=== PATIENT | female | born 1945 | race Caucasian/White ===

== ENCOUNTER 2016-09-20 08:13 | Inpatient (IN) | payer MEDICARE, OTHER ==
[~2016-09-20] VITALS: Ht 167.6 cm; Wt 100.1 kg
[2016-09-20] VITALS (8 sets, daily range): BP systolic 126–137; BP diastolic 74–91; PULSE 52–142; RESP 16–18; O2SAT 96–98
[~2016-09-20 08:13] MED LIST: ACET-171 PO; BENA20TA PO; CEPH500C PO; CHOL10008 PO; CLOB15CR3 TOP; CLOT15CR5 TOPICAL; DESO15CR25 TOP; FLUO15OI TOP; HYDR-4003 PO; METO25TA99 PO; MULT-1086 PO; OLP.1OP5 AFFECT_EYE; OMEG1CAP99 PO; PROP225C6 PO; WARF2.5T82 PO; WARF5TAB7 PO; [UNRECOGNIZED DRUG - CODE] OP
[2016-09-20] MEDS ORDERED: Alum-Mag Hydrox-Simeth 30 mL Suspension PO PRN (08:35)
[2016-09-20] MEDS ORDERED: Polyethylene Glycol (PEG) 17 Gm Powder PO PRN (08:35)
[2016-09-20 09:29] LABS: INR 1.85 ratio
[2016-09-20 09:35] LABS: Magnesium 1.9 mg/dL (1.6-2.6)
--- NOTE | 2016-09-20 10:05 | HP ---
[address] [address] HISTORY AND PHYSICAL PATIENT: SHLOMO PAEZ : 1945 MR#: [id number] ADMIT: 09/20/2016 JOB ID: [id number] REASON FOR ADMISSION: To start new antiarrhythmic therapy for atrial fibrillation with sotalol. CHIEF COMPLAINT: Fatigue and exertional dyspnea. BRIEF HISTORY: The patient is a pleasant 71-year-old woman with a structurally normal heart, but paroxysmal atrial fibrillation even when treated with propafenone. She has had a previous atrial fibrillation ablation procedure, and she has sick sinus syndrome with symptomatic bradycardia and has a dual-chamber cardiac pacemaker in place. Her pacemaker showed the presence of atrial fibrillation about 30% of the time. The pacemaker is functioning normally. She experienced a significant fatigue and exertional dyspnea and this may be from the presence of atrial fibrillation or possibly from propafenone. The recent echocardiogram and stress tests have not been revealing for a cause of her symptoms. This admission was arranged to switch antiarrhythmic medications from propafenone to sotalol with hopes of better efficacy in preventing atrial fibrillation and to rule out propafenone as a cause of symptoms also. Today other than exertional dyspnea. She feels well at rest. She has no complaints of shortness of breath or chest pain at rest. She is mildly aware of an irregular rhythm, although she does not feel tachycardia or symptoms the way she did prior to the ablation and prior to the pacemaker. She denies any pain or abdominal discomfort and has no current problems with diarrhea. PAST MEDICAL HISTORY: This is significant for tachycardia bradycardia syndrome including paroxysmal atrial fibrillation with rapid rates and bradycardia with syncope. She also has hypertension. ALLERGIES: 1. MORPHINE. 2. LATEX. 3. BUPROPION. 4. ADHESIVE TAPE. 5. MEPERIDINE. REVIEW OF SYSTEMS: Currently feeling well in general, no complaints of shortness of breath, anxiety, or pain. She has exertional fatigue. Constitutional is negative for weight gain or weight loss. Musculoskeletal negative for weakness. GI no blood in stool or heartburn. Endocrine no polydipsia. Hematology no easy bleeding, although she is on warfarin. Skin: She has a rash on the dorsum of her left foot and this has been chronic. Cardiac palpitations, but no chest pain. Respiratory: No shortness of breath or wheezing at rest. : No hematuria. Neuro no dizziness or difficulty walking. PHYSICAL EXAMINATION: She is a well-developed, well-nourished, 71-year-old woman who appears younger than her stated age and is in no distress. Carotid pulses are faint, but present and irregular. No carotid bruits. No JVD. No thyromegaly. Chest exam breath sounds are full and clear in all sullivan. There is no wheezing. Cardiac rhythm is irregularly irregular. Rate approximately 100 per minute. No gallops or murmurs heard. Abdomen is soft and nontender, modestly obese. Extremities are with good pulses and no cyanosis and no edema. IMPRESSION: The patient with continued paroxysmal atrial fibrillation despite prior ablation procedure. She is known to have tachybrady syndrome and has a dual-chamber pacemaker in place. She continues to have significant exertional fatigue and dyspnea. This may be from atrial fib or from medication. PLAN: The patient was taken off propafenone about 5 days ago, and she will be started on sotalol 80 mg b.i.d. today. Baseline BMP and magnesium will be obtained as well as her INR. A 12 lead ECG will be recorded prior to sotalol and then 2 hours after each dose of sotalol observing for the QT interval. We expect to find that her atrial fibrillation has been paroxysmal, and she will not require cardioversion during this hospitalization. The pacemaker will be analyzed at some point to see what the burden of atrial fibrillation has been for the last month.
--- NOTE | 2016-09-20 14:14 | PCM.CONPHA ---
Subjective Reason for Pharmacy Consult: Anticoagulation Management Assessment/Plan Assessment/Plan Warfarin Management by Pharmacy Indication: Afib Home Dose: Warfarin 5 mg Mon/Tue/Fri; 2.5 mg AOD INR Goal: 2-3 Duration: Unknown INR: 1.85 Assessment/Plan - Subtherapeutic INR with no dose taken prior to admit. No acute s/s of bleeding. -Will continue with home dose of warfarin 5mg this evening. -Pharmacy to monitor INR/CBC/signs of bleeding while inpatient. Dave Zuleta Dwaine Pharm.D. Silvano Acosta September 20, 2016 14:14
[2016-09-20] MEDS ORDERED: PROP1DRO BOTH_EYES (15:33)
[2016-09-20] MEDS ORDERED: WARF5TAB7 PO ×2 (15:33)
[2016-09-20] MEDS ORDERED: GLUC-104 PO (15:33)
[2016-09-20] MEDS ORDERED: CHOL5000 PO (15:33)
--- NOTE | 2016-09-20 17:41 | NUR ---
Arrived at 0820, Multidisciplinary Communication About 0820 - She arrived to [facility] from home. She was settled into her room and shown around it. Assessment completed, vitals taken, baseline EKG run, IV placed, and her first dose of Sotalol given. 1255 - Noted there was some confusion on the QTc reporting on her EKGs so BARBARA Valero was paged. He called back and said he'd look over it. He called back shortly after and said that because her hear rate was over 100 her QTcs were not reading properly. Per his personal measuring he determined her QTcs were about 360 for both her baseline and first post Sotalol dose EKGs. Care continues.
[2016-09-21] VITALS (8 sets, daily range): BP systolic 118–140; BP diastolic 77–98; PULSE 57–125; RESP 16–20; O2SAT 95–97
--- NOTE | 2016-09-21 01:15 | NUR ---
Report given and care transferred to the receiving RN (Monique Clark) at the bedside.
--- NOTE | 2016-09-21 05:01 | NUR ---
Patient has been resting without complaint overnight. Denies any chest pain or SOB. Patient instructed to inform us of any changes. Continue with sotolol monitoring.
[2016-09-21 05:17] LABS: INR 1.94 ratio
[2016-09-21] MEDS: MeTOProlol XL 25 mg ER24 Tablet PO SCH ×2 (09:22→21:04)
--- NOTE | 2016-09-21 11:45 | NUR ---
Social Work Note - Initial Assessment: D: See Initial Assessment. The Pt is a 71 y/o female that was admitted for atrial fibrillation, Readmission Risk Score is 1. The Pt's PCP is MD Bhavani rOtiz and her primary insurance is Medicare with a [employer] Plan supplement, no LTC or VA benefits reported. EMR reviewed. SW met with the Pt to explain role and discuss discharge planning, SW telephone written on white board. The Pt lives in a one story home in [place] with her , she is independent in her ADLs. Pt reports that she is in the process of completing her Advanced Directive. The Pt continues to drive, does not use any DME, and has no HH/SNF history. The Pt is being followed by Cardiology, see notes. The Pt denies any needs at this time, SW to follow if needs arise. A: Pt who is independent in her ADLs at baseline. P: The Pt is not medically stable for discharge, being followed by Cardiology. Pt likely to discharge home with family providing POV transportation when medically ready. The Pt denies any needs at this time, SW to follow if needs arise. NISHA Hobson Nitroglycerin Nitrator Operator Batch NISHA Harvey Addendum: 09/21/16 at 1153 by HONEY ELIZONDO Amended: Links added.
--- NOTE | 2016-09-21 14:49 | NUR ---
Telemetry, Care Assist, Multidisciplinary Communication 819 - The [employer] called to notify this nurse that her heart rate was increasing into the 130s A-fib. Informed her that this nurse would check on her and be giving her cardiac medications soon. 909 - Spoke with BARBARA Valero about her morning medications, medication requisition, and her low INR and need for a higher dose of warfarin. He said he would speak to pharmacy about dosing the warfarin. [id number] - Laurita Shafer RN temporarily took over her care while this nurse went and received mandatory educational training. Care continues. Addendum: 09/21/16 at 1714 by SEAMUS GALAN RN 1700 - Called Clarence from Pharmacy to clarify her Warfarin dose for today. He said that the dose she got this morning was the only one she needed for today. Care continues.
--- NOTE | 2016-09-21 18:31 | PROG NOTE ---
[address] [address] PROGRESS NOTE PATIENT: SHLOMO PAEZ : 1945 MR#: [id number] ADMIT: 09/20/2016 JOB ID: [id number] DATE: 09/21/2016 CHIEF COMPLAINT: Rapid and irregular pulse beat. SUBJECTIVE: The patient began antiarrhythmic therapy with sotalol yesterday for treatment of atrial fibrillation. She is tolerating the medication well and her only possible side-effect sign or symptom was that she had five bowel movements yesterday, although it was not diarrhea. Today, she reports much relief from this and she has not gone to the toilet as much. Otherwise, she denies any stomach upset, nausea, lightheadedness, or dyspnea. OBJECTIVE: Cardiac telemetry shows continued presence of atrial fibrillation. Her 12-lead ECG today after the third dose of sotalol 80 mg shows atrial fibrillation with an average ventricular rate of 97 BPM and a QT interval of 366 msec. The baseline QT interval was 360 msec. Vital signs are stable except for the rapid and irregular rhythm. BP have neither been high nor low. O2 saturation is 97% on room air and she is afebrile. New lab data today show an increase in the INR from 1.85 to 1.94. Her CMP yesterday was entirely normal except for glucose of 115, but this was not a fasting sample. Her potassium measured 4.2 and magnesium 1.9. The patient's physical exam was unchanged from yesterday. ASSESSMENT: Continued presence of atrial fibrillation with rapid ventricular response. The patient is tolerating sotalol without side effects and the combination of sotalol with her other BP meds has not produced hypotension. PLAN: After discussion of the patient's continued atrial fibrillation and her INR of yesterday and today with Dr. Woodward, we have decided to go ahead and increase the sotalol dose to 120 mg beginning this evening and will record 12-lead ECGs after sotalol doses to observe for any abnormal prolongation of the QT interval. Historically, the patient has had spontaneous terminations of the atrial fibrillation and so we will not plan on cardioverting her tomorrow. I checked her dual-chamber pacemaker today and increased the base rate to 70 BPM so that when she does break from atrial fib back to sinus rhythm, she will not be bradycardic and the QT interval should not be too long. We will plan on discharge around noon tomorrow after the fifth dose of sotalol.
[2016-09-22] VITALS: BP 114/71; PULSE 104; RESP 20; O2SAT 97
[2016-09-22 04:30] LABS: INR 2.51 ratio
[2016-09-22 05:11] VITALS: BP 107/70; PULSE 76; RESP 20; O2SAT 96
--- NOTE | 2016-09-22 05:35 | NUR ---
Sotolol Pt recived 120 mg of Sotalol this shift and tolerated well. EKG was WNL and no c/o of CP, SOB from patient. Pt is A%Ox3 and independent in room. Pt continues to be in Afib with HR of 100-110's. VSS.
[2016-09-22 08:40] VITALS: PULSE 114
[2016-09-22 08:56] VITALS: BP 120/83; PULSE 61; RESP 17; O2SAT 96
[2016-09-22] MEDS: MeTOProlol XL 25 mg ER24 Tablet PO SCH (09:03)
[2016-09-22 11:02] VITALS: PULSE 110
[2016-09-22 11:40] VITALS: BP 130/92; PULSE 71; RESP 16; O2SAT 96
--- NOTE | 2016-09-22 12:03 | PCM.DIMED ---
Discharge Instructions Date of Service September 22, 2016 Dates of Hospitalization September 20, 2016 at 08:13 Discharge Diagnosis Discharge Diagnosis Persistent Atrial Fibrillation Tachy / Ashok Syndrome Cardiac Pacemaker Hypertension Diet No restrictions Activity No restrictions Call your provider Other (Fainting or near fainting) Patient Instructions Follow-up in: 3 weeks Mid-level Provider (F9): Sergio Shah PA-C Follow-up with Mid-level in: 3 weeks (Appt. on October 14, 2016 at [facility]-Cardiology at 3:00 (arrive at 2:40 pm for check-in and EKG)) Sergio Shah PA-C September 22, 2016 12:03
[2016-09-22] MEDS ORDERED: BET80 PO (12:06)
--- NOTE | 2016-09-22 12:09 | NUR ---
Social Work Note: Discharge Data& Assessment: EMR reviewed. Per pt is medically ready to discharge home via POV. Luz Marina Rai is a 71 year old female admitted on 09/20/2016 for atrial fibrillation. Per pt is medically improved and ready to discharge home. SW met with pt at bedside to confirm discharge plan and assess for any unmet needs. Pt transporting her home privately. Pt ambulating the halls independently. Pt denies any other needs. No other needs identified. Plan: Per pt is medically ready to discharge home via POV. Pt denies any other needs. No other needs identified. NISHA Harvey
--- NOTE | 2016-09-22 13:40 | NUR ---
Discharge She discharged at 1340 and walked out with her . Took all her belongings. IV discontinued intact and telemetry taken off. Discussed and gave her the discharge paperwork (instructions and care notes). She had no questions at the time of discharge and thanked this nurse for her care.
--- NOTE | 2016-09-22 15:58 | DIS ---
[address] [address] DISCHARGE SUMMARY PATIENT: SHLOMO PAEZ : 1945 MR#: [id number] ADMIT: 09/20/2016 JOB ID: [id number] DIS: 09/22/2016 REASON FOR ADMISSION: She was admitted to start new antiarrhythmic therapy for atrial fibrillation with sotalol. CHIEF COMPLAINT: Fatigue and exertional dyspnea. BRIEF HISTORY: The patient is a pleasant 71-year-old woman with paroxysmal atrial fibrillation previously treated unsuccessfully with propafenone. She also had a previous atrial fibrillation ablation procedure and has sick sinus syndrome with tachycardia and bradycardia and was treated with a dual-chamber cardiac pacemaker. The pacemaker has shown presence of atrial fibrillation about 30% of the time and she experiences significant fatigue and exertional dyspnea. It is unclear whether this is from the atrial fibrillation directly or from the propafenone. Plan developed was to stop propafenone for at least five days and start her on sotalol in the hospital to watch for prolonged QT interval and see if she will revert to normal rhythm and feel better. COURSE IN HOSPITAL: The patient was admitted to the [facility] and placed on cardiac telemetry. After baseline labs and ECG were obtained, she was started on sotalol at 80 mg b.i.d. Twelve lead ECGs were recorded two hours after each dose and she had no abnormal prolongation of the QT interval. For the fourth and fifth doses, the sotalol was increased to 120 mg and she again had no abnormal prolongation of the QT interval, but she remained in atrial fibrillation. Historically she has converted spontaneously and her overall atrial fib burden is approximately 30% of the time. She tolerated the medication well and felt well for discharge home today. Her initial INR was 1.85. Her warfarin doses were increased to 5 mg each evening and today the INR is 2.51. DISPOSITION: The patient was discharged home in good condition with a follow up appointment at the [facility] Cardiology office in three weeks. A prescription for sotalol 120 mg b.i.d. was sent to her pharmacy. She has no activity or specific dietary restrictions. FINAL DIAGNOSES: 1. Persistent atrial fibrillation. 2. Tachybrady syndrome. 3. Cardiac pacemaker. 4. Hypertension.
== END 2016-09-22 13:44 | disposition home or self-care (01) | DRG 310 ==
LOC: PCC 08:13
PROVIDERS: ADMIT Internal Medicine Cardiovascular Disease; ATTEND Internal Medicine Cardiovascular Disease
PROC: 3E0D7RZ Introduction of Antiarrhythmic into Mouth and Pharynx, Via Natural or Artificial Opening (ICD-10-PCS; principal; 2016-09-21)
DX: I48.0 Paroxysmal atrial fibrillation (principal); I10 Essential (primary) hypertension; Z79.01 Long term (current) use of anticoagulants; Z95.0 Presence of cardiac pacemaker